=== PATIENT | male | born 1990 | race American Indian/Alaskan Native ===

== ENCOUNTER 2021-12-15 18:03 | Emergency (ER) | payer OTHER ==
--- NOTE | 2021-12-15 22:53 | XRay Report ---
ABDOMEN, SINGLE VIEW INDICATION / CLINICAL INFORMATION: NO BM, pain. COMPARISON: None available. FINDINGS: Single view the abdomen demonstrates moderate to large amount of stool throughout the colon and withi n the rectum. There may be a small rectal fecal impaction. Bowel gas pattern is otherwise unremarkabl e. No abnormal calcifications noted. IMPRESSION: Moderate to large amount of retained stool throughout the colon and rectum. Signer Name: Giselle Wilson MD Signed: 12/15/2021 10:48 PM Workstation Name: [id number]
[2021-12-15] MEDS ORDERED: MAGNESIUM CITRATE 300 ML ORAL LIQD PO ONE (23:17)
--- NOTE | 2021-12-15 23:22 | Emergency Department Report ---
ED Abdominal Pain HPI - General Chief Complaint: Abdominal Pain Stated Complaint: CONSTIPATION/WEAKNESS Time Seen by Provider: 12/15/21 21:28 Source: patient Mode of arrival: Ambulatory Limitations: No Limitations - History of Present Illness Initial Comments: 31-year-old black male with no past medical history presents to the emergency department for evaluation of abdominal pain and possible constipation. He states that he is visiting from [place] and is scheduled to go back home tomorrow but for the past few days he has been unable to have a bowel movement. He states that he attempted digital stimulation without any results. He states that he is now having some lower back pain and pain to his rectal area. He denies fever, nausea, vomiting, and penile discharge. MD Complaint: other (Back pain and rectal pain) -: Gradual, days(s) Radiation: none Migration to: no migration Severity: mild, moderate Severity scale (0 -10): 4 Quality: aching Consistency: constant Associated Symptoms: constipation. denies: nausea, vomiting, fever, chills, dysuria, hematemesis, hematochezia, melena, hematuria, anorexia, syncope - Related Data Previous Rx's Medication Instructions Recorded Last Taken Type Polyethylene Glycol 3350 [Miralax] 17 gm PO DAILY #1 bottle 12/15/21 Unknown Rx Allergies Allergy/AdvReac Type Severity Reaction Status Date / Time No Known Allergies Allergy Unverified 12/15/21 18:04 ED Review of Systems ROS: Stated complaint: CONSTIPATION/WEAKNESS Other details as noted in HPI Comment: All other systems reviewed and negative Constitutional: denies: chills, fever Respiratory: denies: shortness of breath Cardiovascular: denies: chest pain, palpitations Gastrointestinal: constipation. denies: abdominal pain, nausea, vomiting, hematemesis, melena, hematochezia Genitourinary: denies: urgency, dysuria Musculoskeletal: back pain Neurological: denies: headache, weakness ED Past Medical Hx - Past Medical History Previous Medical History?: No - Surgical History Past Surgical History?: No - Medications Home Medications: Home Medications Medication Instructions Recorded Confirmed Last Taken Type Polyethylene Glycol 3350 [Miralax] 17 gm PO DAILY #1 bottle 12/15/21 Unknown Rx ED Physical Exam - General Limitations: No Limitations General appearance: alert, in no apparent distress - Head Head exam: Present: atraumatic, normocephalic - Eye Eye exam: Present: normal appearance. Absent: conjunctival injection, periorbital swelling, periorbital tenderness - ENT ENT exam: Present: normal exam - Neck Neck exam: Present: normal inspection. Absent: tenderness, lymphadenopathy - Respiratory Respiratory exam: Present: normal lung sounds bilaterally. Absent: respiratory distress, wheezes, rales, rhonchi, stridor, chest wall tenderness - Cardiovascular Cardiovascular Exam: Present: regular rate, normal heart sounds - GI/Abdominal GI/Abdominal exam: Present: soft, normal bowel sounds. Absent: distended, tenderness, guarding, rebound, rigid - Extremities Exam Extremities exam: Present: normal inspection, full ROM, normal capillary refill. Absent: pedal edema, joint swelling, calf tenderness - Back Exam Back exam: Present: normal inspection. Absent: CVA tenderness (R), CVA tenderness (L) - Neurological Exam Neurological exam: Present: alert, oriented X3, CN II-XII intact, normal gait, reflexes normal. Absent: motor sensory deficit - Psychiatric Psychiatric exam: Present: normal affect, normal mood - Skin Skin exam: Present: warm, dry, intact, normal color ED Course Vital Signs 12/15/21 18:08 Temperature 98.2 F Pulse Rate 78 Respiratory 20 Rate Blood Pressure 124/76 O2 Sat by Pulse 100 Oximetry ED Medical Decision Making - Radiology Data Radiology results: report reviewed, image reviewed KUB: FINDINGS: Single view the abdomen demonstrates moderate to large amount of stool throughout the colon and within the rectum. There may be a small rectal fecal impaction. Bowel gas pattern is otherwise unremarkable. No abnormal calcifications noted. IMPRESSION: Moderate to large amount of retained stool throughout the colon and rectum. - Medical Decision Making 31-year-old black male with no past medical history presents to the emergency department for evaluation of abdominal pain and possible constipation. He states that he is visiting from [place] and is scheduled to go back home tomorrow but for the past few days he has been unable to have a bowel movement. He states that he attempted digital stimulation without any results. He states that he is now having some lower back pain and pain to his rectal area. He denies fever, nausea, vomiting, and penile discharge. Physical examination unremarkable. KUB positive for moderate constipation. Patient will be given one-time dose of mag citrate in the emergency department and discharged home with prescription for MiraLAX and advised to make some dietary alterations and increase noncaffeinated fluid intake. He is advised to follow-up with primary care provider if no improvement or worsening symptoms and return to the emergency department as needed. He verbalizes understanding of and agreement with plan of care Critical care attestation.: If time is entered above; I have spent that time in minutes in the direct care of this critically ill patient, excluding procedure time. ED Disposition Clinical Impression: Constipation Qualifiers: Constipation type: unspecified constipation type Qualified Code(s): K59.00 - Constipation, unspecified Disposition: HOME / SELF CARE / HOMELESS Is pt being admited?: No Does the pt Need Aspirin: No Condition: Stable Instructions: Constipation, Adult, [id number], High-Fiber Diet Additional Instructions: Take medications as prescribed. Increase intake of noncaffeinated fluids and dietary fiber. Follow-up with your primary care provider if no improvement or worsening symptoms or return to the emergency department as needed. Prescriptions: Polyethylene Glycol 3350 [Miralax] 17 gm PO DAILY #1 bottle Referrals: JERRY MONTESINOS MD [Other] - 3-5 Days Time of Disposition: 23:23
[2021-12-15 23:43] VITALS: BP 126/70
== END 2021-12-15 23:39 | disposition home or self-care (01) ==
LOC: ED 18:03
DX: K59.00 Constipation, unspecified (principal)
CPT/HCPCS: 74018; 99283